=== PATIENT | female | born 1975 | race American Indian/Alaskan Native ===

== ENCOUNTER 2018-05-16 10:48 | Outpatient (CLI) | payer OTHER ==
--- NOTE | 2018-05-17 09:07 | Mammography Report ---
BILATERAL DIGITAL SCREENING MAMMOGRAM with CAD: 05/16/18 10:48:00 CLINICAL: Routine screening. COMPARISON:None. FINDINGS: The breasts are almost entirely fatty. No mass, architectural distortion or suspicious calcifications. IMPRESSION: No mammographic evidence of malignancy. BI-RADS CATEGORY: 1 - - Negative RECOMMENDATION: Routine mammographic screening in one year. COMMENT: Patient follow-up letters are generated by our [employer] application.
== END 2018-05-16 10:49 | disposition home or self-care (01) ==
LOC: MAMMO 10:48
PROVIDERS: ATTEND Advanced Practice Midwife
DX: Z12.31 Encounter for screening mammogram for malignant neoplasm of breast (principal)
CPT/HCPCS: 77067

== ENCOUNTER 2018-11-07 08:35 | Observation (INO) | payer OTHER ==
--- NOTE | 2018-11-06 11:51 | Anesthesia Consultation ---
Anesthesia Consult and Med Hx Date of service: 11/06/18 - Airway Anesthetic Teeth Evaluation: Good ROM Head & Neck: Adequate Mental/Hyoid Distance: Adequate Mallampati Class: Class II Intubation Access Assessment: Probably Good - Pulmonary Exam CTA: Yes - Cardiac Exam Cardiac Exam: RRR - Pre-Operative Health Status ASA Pre-Surgery Classification: ASA2 Proposed Anesthetic Plan: General Nerve Block: Tap - Central Nervous System Hx Psychiatric Problems: No - Hematic Hx Anemia: Yes - Other Systems Hx Alcohol Use: Yes (Occas) Hx Cancer: No
[2018-11-06 11:54] LABS: Basophils % (Auto) 0.5 % (0.0-1.8); Eosinophils # (Auto) 0.1 K/mm3 (0.0-0.4); Eosinophils % (Auto) 1.4 % (0.0-4.3); Hematocrit 32.9 % (30.3-42.9); Hemoglobin 10.9 gm/dl (10.1-14.3); Lymphocytes # (Auto) 1.9 K/mm3 (1.2-5.4); Lymphocytes % (Auto) 31.1 % (13.4-35.0); Mean Corpuscular HGB Conc 33 % (30-34); Mean Corpuscular Volume 85 fl (79-97); Monocytes # (Auto) 0.3 K/mm3 (0.0-0.8); Monocytes % (Auto) 5.3 % (0.0-7.3); Platelet Count 310 K/mm3 (140-440); Red Blood Count 3.86 M/mm3 (3.65-5.03); Red Cell Distribution Width 15.1 % (13.2-15.2)
[~2018-11-07 08:35] MED LIST: LACTATED RINGERS 1,000 ML IV SCH; MARCAINE 0.5% INFILTRATI NR; NEURONTIN PO NR; VERSED IV NR; XYLOCAINE 1% 20 mL INFILTRATI NR
[2018-11-07] MEDS ORDERED: ZOFRAN IV PRN ×2 (08:43→12:30)
--- NOTE | 2018-11-07 08:44 | Anesthesia Day of Surgery ---
Anesthesia Day of Surgery - Day of Surgery Patient Examined: Yes Patient H&P Reviewed: Yes Patient is NPO: Yes Beta Blockers: No Cardiac Clearance: No Pulmonary Clearance: No Venkat's Test: N/A
--- NOTE | 2018-11-07 08:47 | History and Physical Report ---
History of Present Illness Date of examination: 11/07/18 Chief complaint: Symptomatic uterine fibroids History of present illness: Pt is a 43yo BF LMP 11/06/18 presents for surgical evaluation and treatment of uterine fibroids. Pt complains of pelvic pain and prolonged heavy vaginal bleeding. Pelvic u/s showed an enlarged uterus 12 x 9 x 7cm with an anterior fibroid, and endometrial biopsy was benign. She is therefore scheduled for a Robotic Assisted Total Hysterectomy with ovarian conservation. Past History Past Medical History: no pertinent history Past Surgical History: [employer]ING [employer]/uterine surgery (Laprsoscopic ovarian cystectomy), section (x3) [employer] History: fibroids Social history: no significant social history, single Medications and Allergies Allergies Allergy/AdvReac Type Severity Reaction Status Date / Time codeine Allergy Swelling Verified 11/02/18 09:14 Home Medications Medication Instructions Recorded Confirmed Last Taken Type No Known Home Medications [No 11/02/18 11/02/18 Unknown History Reported Home Medications] Active Meds: Active Medications Bupivacaine HCl (Marcaine 0.5%) 20 ml INFILTRATI PREOP NR Stop: 11/07/18 23:59 Celecoxib (Celebrex) 200 mg PO PREOP NR Stop: 11/07/18 23:59 Gabapentin (Neurontin) 300 mg PO PREOP NR Stop: 11/07/18 23:59 Lactated Ringer's (Lactated Ringers) 1,000 mls @ 42 mls/hr IV DIRECT DIONNE Lidocaine (Xylocaine 1% 20 Ml) 10 ml INFILTRATI PREOP NR Stop: 11/07/18 23:59 Review of Systems All systems: negative - Vital Signs Vital signs: Vital Signs Temp Pulse Resp BP Pulse Ox 97.9 F 79 20 150/82 100 11/06/18 11:15 11/06/18 11:15 11/06/18 11:15 11/06/18 11:15 11/06/18 11:15 Temp Pulse Resp BP Pulse Ox 97.9 F 79 20 150/82 100 11/06/18 11:15 11/06/18 11:15 11/06/18 11:15 11/06/18 11:15 11/06/18 11:15 - Physical Exam Breasts: Positive: deferred Cardiovascular: Regular rate Lungs: Positive: Clear to auscultation Abdomen: Positive: normal appearance Genitourinary (Female): Positive: normal external genitalia Vagina: Positive: normal moisture Uterus: Positive: enlarged Extremities: Positive: normal Results Result Diagrams: 11/06/18 11:30 All other labs normal. Ultrasound: report reviewed Assessment and Plan - Patient Problems (1) Uterine fibroid Onset Date: 11/07/18 Current Visit: Yes Status: Acute Qualifiers: Uterine leiomyoma location: intramural and submucous Qualified Code(s): D25.1 - Intramural leiomyoma of uterus; D25.0 - Submucous leiomyoma of uterus Plan to address problem: A: Symptomatic uterine fibroids Menorrhagia P: Admit for a Robotic Assisted Total Hysterectomy with Bilateral Salpingectomy (2) Menorrhagia with regular cycle Onset Date: 11/07/18 Current Visit: Yes Status: Acute
[2018-11-07] MEDS ORDERED: ANCEF/STERILE WATER 2 GM/20 ML 2 GM/20 ML SYRINGE IV NR (09:00)
[2018-11-07] MEDS ORDERED: XYLOCAINE MPF 2% ONE (09:50)
[2018-11-07] MEDS ORDERED: ZEMURON IV ONE (09:50)
[2018-11-07] MEDS ORDERED: SUBLIMAZE ONE ×2 (09:51→10:08)
[2018-11-07] MEDS ORDERED: DIPRIVAN 10 MG/ML IV ONE (09:51)
[2018-11-07] MEDS ORDERED: NEOSPORIN GU IR ONE ×2 (11:40→12:53)
[2018-11-07] MEDS ORDERED: NACL 0.9% IR ONE (11:41)
[2018-11-07] MEDS ORDERED: ROBINUL ONE (11:46)
[2018-11-07] MEDS ORDERED: BLOXIVERZ ONE (11:46)
[2018-11-07] MEDS ORDERED: TORADOL ONE (12:26)
[2018-11-07] MEDS ORDERED: ZOFRAN ONE (12:26)
[2018-11-07] MEDS ORDERED: NARCAN 0.4 MG/1 ML IV PRN (12:30)
[2018-11-07] MEDS ORDERED: TYLENOL PO PRN (12:30)
[2018-11-07] MEDS ORDERED: PHENERGAN PR PRN (12:30)
[2018-11-07] MEDS ORDERED: NORCO 5/325 PO PRN (12:30)
[2018-11-07] MEDS ORDERED: BENADRYL IV PRN (12:30)
[2018-11-07] MEDS ORDERED: MILK OF MAGNESIA PO PRN (12:30)
--- NOTE | 2018-11-07 12:51 | Operative Report ---
Operative Report Operative Report: Date of procedure: 11/07/2018 Pre-operative diagnosis: 1. Symptomatic uterine fibroids 2. Menorrhagia Post-operative diagnosis: Same with extensive pelvic adhesions Procedure name(s): 1. Robotic-assisted total hysterectomy 2. Bilateral salpingectomy 3. Lysis of extensive pelvic adhesions Surgeon: Rome Aguilar MD Advertiser: Marianela Hernandez CSA Anesthesia: CHRISTIANO Block followed by general endotracheal intubation by Dr. Booker EBL: 100 mL Findings: A 10-12 week size uterus with uterine fibroids. Absent left fallopian tube and normal right fallopian tube. Normal ovaries bilaterally. Procedure: After the patient's first correctly identified she was prepped and draped in the usual sterile fashion and placed in the dorsolithotomy position. The bladder was first catheterized using Roberts catheter and the speculum was placed in the vagina and the anterior lip of the cervix was grasped using a single-tooth tenaculum, and the medium Vesicare cup was placed. The tenaculum and speculum was then removed from the vagina and attention was then turned to the abdomen. The skin knife was used to make a small incision approximately 5 cm above the umbilicus through which a 12 mm trocar was placed under direct visualization. After adequate amount of abdominal insufflation visualization of the pelvic organs found the uterus to be enlarged and the left tube was absent and normal right fallopian tube was visualized. The ovaries were normal bilaterally. A right and left paramedian incision was made through which the 8 mm trochars were placed under direct visualization and a 5 mm trocar was placed in the right lower quadrant. The patient was then placed in steep Trendelenburg positioning and the robot was docked on the patient's left side. After all the robotic ports were connected and adequate functioning of the robotic arms were tested the surgeon then proceeded to the console to begin the hysterectomy. First the left round ligament was grasped, cauterized and cut, the left utero- ovarian ligament was grasped, cauterized and cut, and the left fallopian tube was absent thus freeing the left ovary from the left uterine sidewall. The same procedure was performed on the right. The right round ligament was grasped, cauterized and cut, the right utero-ovarian ligaments were grasped, cauterized and cut, and the right fallopian tube also grasped, cauterized and cut along the mesosalpinx, thus freeing the right ovary from the right uterine sidewall. There were extensive adhesions from the lower uterine segment to the anterior abdominal wall which was taken down using both sharp and blunt dissection. The bladder flap was taken down anteriorly and the uterine vessels were grasped, cauterized and cut bilaterally. The cardinal ligaments were sequentially grasped, cauterized and cut down to the level of the uterosacral ligaments. At this time the posterior colpotomy was performed over the Vcare cup, and the cervix was circumscribed beginning posteriorly and meeting anteriorly until the cervix was freed. The cervix and uterus was then removed through the vagina and sent to pathology. The vaginal cuff was then closed using 2-0 Vloc suture in a running fashion. Irrigation was then performed and after good hemostasis was achieved the procedure was considered complete. The Tisseel sealant was then sprayed across the vaginal cuff site, and after excellent hemostasis was assured Interceed was placed across the vaginal cuff site. All instruments were then removed from the abdominal cavity. And each incision was closed using 0 Vicryl suture in a [id number] configuration on the fascia followed by 4-0 Monocryl suture in a sub-cuticular fashion on the skin. Each incision was also infiltrated using 0.5% Marcaine solution. The vaginal pack was removed, and there was noted to be a small vaginal laceration which was repaired using 3-0 Vicryl suture [id number] configurations. The patient tolerated the procedure well and was transported to the recovery room in stable condition.
[2018-11-07] MEDS: DILAUDID IV PRN ×2 (13:00→14:26)
[2018-11-07] MEDS ORDERED: NORMODYNE IV ONE ×2 (13:26→13:31)
[2018-11-07] MEDS: D5LR 1,000 ML IV SCH (15:17)
[2018-11-07] MEDS: PERCOCET 5/325 PO PRN (16:40)
[2018-11-07] MEDS: TORADOL IV SCH (19:09)
[2018-11-07] MEDS: ANCEF/NS 1 GM/50 ML 1 GM/50 ML BAG IV SCH (19:16)
[2018-11-07] MEDS ORDERED: AMBIEN PO PRN (19:59)
[2018-11-07] MEDS: COLACE PO SCH (22:07)
[2018-11-08] MEDS: D5LR 1,000 ML IV SCH (00:11)
[2018-11-08] MEDS: TORADOL IV SCH ×2 (01:53→07:57)
[2018-11-08] MEDS: ANCEF/NS 1 GM/50 ML 1 GM/50 ML BAG IV SCH (02:32)
[2018-11-08 06:20] LABS: Hematocrit 28.9 % (30.3-42.9); Hemoglobin 9.8 gm/dl (10.1-14.3)
[2018-11-08] MEDS: PERCOCET 5/325 PO PRN (06:44)
--- NOTE | 2018-11-08 10:40 | Progress Note ---
Assessment and Plan - Patient Problems (1) Uterine fibroid Onset Date: 11/07/18 Current Visit: Yes Status: Resolved Qualifiers: Uterine leiomyoma location: intramural and submucous Qualified Code(s): D25.1 - Intramural leiomyoma of uterus; D25.0 - Submucous leiomyoma of uterus (2) Menorrhagia with regular cycle Onset Date: 11/07/18 Current Visit: Yes Status: Resolved (3) S/P robot-assisted surgical procedure Onset Date: 11/08/18 Current Visit: Yes Status: Resolved Plan to address problem: A: S/P RATH - POD #1 Doing well Asymptomatic anemia - stable P: May go home today. Subjective - Subjective Date of service: 11/08/18 Principal diagnosis: s/p RATH - POD #1 Interval history: Pt is feeling well, complains of incisional pains. She is tolerating a liquid diet without nausea or vomiting, ambulating and voiding without difficulty. Patient reports: appetite normal, voiding normally, dizzy ambulation, flatus, pain poorly controlled, ambulating normally, no nauseated Objective - Vital Signs Latest vital signs: Vital Signs Temp Pulse Resp BP BP Pulse Ox 11/08/18 04:40 97.8 F 81 20 128/69 100 11/07/18 23:40 98.8 F 101 H 20 118/60 100 11/07/18 20:15 98.6 F 11/07/18 20:11 99.4 F 18 149/80 11/07/18 20:00 105 H 149/80 100 11/07/18 19:26 158/82 11/07/18 19:09 18 11/07/18 16:40 18 11/07/18 16:14 97.3 F L 98 H 18 157/88 100 11/07/18 15:03 98.5 F 95 H 18 152/78 100 11/07/18 14:09 93 H 100 11/07/18 14:08 90 18 152/78 100 11/07/18 13:45 85 18 154/93 100 11/07/18 13:34 176/94 11/07/18 13:30 97 H 16 178/94 100 11/07/18 13:15 98 H 20 176/94 100 11/07/18 13:00 76 16 169/74 99 11/07/18 12:55 79 20 172/91 100 11/07/18 12:50 76 17 169/79 99 11/07/18 12:45 82 17 161/87 99 11/07/18 12:42 97.3 F L 79 18 168/84 100 Intake and Output 11/07/18 11/08/18 11/08/18 22:59 06:59 14:59 Intake Total 50 1250 Output Total 400 1200 Balance -350 50 Intake: IV 50 1000 ANCEF/NS 1 GM/50 ML 1 gm 50 In 50 ml @ 100 mls/hr IV Q8H DIONNE Rx#:[id number] D5lr 1,000 ml @ 125 mls/ 1000 hr IV DIRECT DIONNE Rx#: [id number] Oral 0 250 Output: Urine 400 1200 Indwelling Catheter 400 1200 Other: Total, Intake Amount 0 250 Total, Output Amount 400 1200 Voiding Method Indwelling Catheter - Exam Abdomen: Present: normal appearance, soft Extremities: Present: normal Incision: Present: normal, dry, intact - Labs Labs: Abnormal lab results 11/08/18 Range/Units 05:57 Hgb 9.8 L (10.1-14.3) gm/dl Hct 28.9 L (30.3-42.9) % Laboratory Tests 11/06/18 11/06/18 11/07/18 11:30 11:30 09:20 WBC 6.2 RBC 3.86 Hgb 10.9 Hct 32.9 MCV 85 MCH 28 MCHC 33 RDW 15.1 Plt Count 310 Lymph % (Auto) 31.1 Dale % (Auto) 5.3 Eos % (Auto) 1.4 Baso % (Auto) 0.5 Lymph # 1.9 Dale # 0.3 Eos # 0.1 Baso # 0.0 Seg Neutrophils % 61.7 Seg Neutrophils # 3.8 HCG, Qual Negative Blood Type A POSITIVE Antibody Screen Negative 11/08/18 05:57 WBC RBC Hgb 9.8 L Hct 28.9 L MCV MCH MCHC RDW Plt Count Lymph % (Auto) Dale % (Auto) Eos % (Auto) Baso % (Auto) Lymph # Dale # Eos # Baso # Seg Neutrophils % Seg Neutrophils # HCG, Qual Blood Type Antibody Screen
--- NOTE | 2018-11-08 11:28 | Discharge Summary ---
Providers - Providers Date of Admission: 11/07/18 12:24 Date of discharge: 11/08/18 Attending physician: ROJELIO YOON Primary care physician: KAIA TURK Hospitalization Reason for admission: other (Symptomatic uterine fibroids; Menorrhagia) Procedure: other (Robotic Assisted Total Hysterectomy with Bilateral salpingectomy and lysis of adhesions) Episiotomy: none Laceration: none Incision: normal, dry, intact Other procedures: none complications: none Discharge diagnosis: other (s/p RATH) Hospital course: Pt is a 43yo BF LMP 11/06/18 who presented for surgical evaluation and treatment of uterine fibroids. Pt complained of pelvic pain and prolonged heavy vaginal bleeding. Pelvic u/s showed an enlarged uterus 12 x 9 x 7cm with an anterior fibroid, and endometrial biopsy was benign. She underwent an uncomplicated Robotic Assisted Total Hysterectomy with Bilateral salpingectomy and lysis of adhesions and tolerated the procedure well. By POD #1 she was tolerating a reg diet without nausea or vomiting, ambulating and voiding without difficulty. Shewas therefore discharged to home on POD #1 in stable condition. Condition at discharge: Good Disposition: DC-01 TO HOME OR SELFCARE - Discharge Diagnoses (1) Uterine fibroid Status: Resolved Qualifiers: Uterine leiomyoma location: intramural and submucous Qualified Code(s): D25.1 - Intramural leiomyoma of uterus; D25.0 - Submucous leiomyoma of uterus (2) Menorrhagia with regular cycle Status: Resolved Plan - Discharge Medications Prescriptions: Ibuprofen [Motrin] 800 mg PO Q8HR PRN #30 tablet PRN Reason: Pain, Mild (1-3) oxyCODONE /ACETAMINOPHEN [Percocet 5/325 mg] 1 tab PO Q6H PRN #30 tablet PRN Reason: Pain, Moderate (4-6) - Provider Discharge Summary Activity: routine, no sex for 6 weeks, no heavy lifting 4 weeks, no strenuous exercise Diet: routine Instructions: routine Additional instructions: [] Smoking cessation referral if applicable(refer to patient education folder for contact #) [] Refer to [facility] Booklet Call your doctor immediately for: * Fever > 100.5 * Heavy vaginal bleeding ( >1 pad per hour) * Severe persistent headache * Shortness of breath * Reddened, hot, painful area to leg or breast * Drainage or odor from incision. * Keep incision clean and dry at all times and follow doctor's instructions regarding bathing/showering - Follow up plan Follow up: KAIA TURK [Primary Care Provider] - 7 Days ROJELIO YOON MD [Staff Physician] - 14 Days
[2018-11-08] MEDS: COLACE PO SCH (12:30)
[2018-11-08 16:51] VITALS: BP 140/78
== END 2018-11-08 16:25 | disposition home or self-care (01) ==
LOC: OR 08:35 → OB 12:24
PROVIDERS: ADMIT Obstetrics & Gynecology; ATTEND Obstetrics & Gynecology
DX: D25.9 Leiomyoma of uterus, unspecified (principal); Z98.890 Other specified postprocedural states; N92.0 Excessive and frequent menstruation with regular cycle
CPT/HCPCS: 36415; 58552; 64450; 84703; 85014; 85018; 85025; 86850; 86900; 86901; 88302; 88307; 96365; 96366; 96375; 96376; A4217; C1765; C9250; G0378; J0690; J1170; J1885; J2250; J2405; J2704; J2710; J3010; J7120; J7121; S2900